=== PATIENT | male | born 1965 ===

== ENCOUNTER 2019-01-30 05:20 | Inpatient (IN) ==
[2019-01-30 06:38] LABS: Basophils % 0.6 % (0.0-0.8); Eosinophils # 0.1 10*3/uL (0.0-0.87); Eosinophils % 1.6 % (0.00-10.9); Hematocrit 20.8 VOL% (42.0-52.0); Immature Granulocytes % 0.3 %; Immature Granulocytes Absolute 0.01 #; Lymphocytes % 31.6 % (21.2-54.2); Mean Corpuscular HGB Conc 27.4 GM/DL (32-36); Monocytes % 12.9 % (1.7-12.7); NRBC # 0.02 10*3/uL; Platelet Count 94 T/CUMM (130-400); Red Blood Count 2.85 MC/CUMM (3.8-5.5); Red Cell Distribution Width 20.6 % (9.3-17.3); White Blood Count 3.1 T/CUMM (4-12)
[2019-01-30 06:42] LABS: Hemoglobin 5.7 GM/DL (14.0-18.0)
[2019-01-30] MEDS ORDERED: SODIUM CHLORIDE 0.9% 1,000 ML IV PRN ×2 (06:53→10:16)
[2019-01-30] MEDS ORDERED: THIAMINE 200 MG/2 ML VIAL IV STA (06:56)
[2019-01-30] MEDS ORDERED: SODIUM CHLORIDE 0.9% 500 ML IV STA (06:56)
[2019-01-30 07:06] LABS: INR 0.9; PT Patient Result 10.3 SECS (9.6-12.2); Partial Thromboplastin Time 26.4 SECS (20.8-36.0)
[2019-01-30 07:13] LABS: Albumin 3.5 G/DL (3.4-5.0); Bilirubin,Direct 0.24 MG/DL (0.0-0.20); Bilirubin,Indirect 0.6 MG/DL (0.0-1.0); Bilirubin,Total 0.8 MG/DL (0.2-1.0); Calcium 7.9 MG/DL (8.5-10.1); Total Protein 7.4 G/DL (6.4-8.3)
[2019-01-30] MEDS ORDERED: ONDANSETRON 4 MG/2 ML VIAL IV PRN (07:40)
[2019-01-30 07:51] LABS: Hypochromasia 1+; Platelet Estimate Decreased
[2019-01-30 08:01] LABS: Apearance,Urine CLEAR (Clear); Bacteria,Urine Occasional /HPF (Few); Bilirubin,Urine Negative (Negative); Blood, Urine Negative (Negative); Glucose,Urine (UA) Negative (Negative); Ketones,Urine Negative (Negative); Mucus,Urine Occasional /LPF (Occasional); Nitrite,Urine Negative (Negative); Protein,Urine Negative; RBC,Urine 1 /HPF (0-4); Urine Color Yellow (Yellow); Urine Specific Gravity 1.004 (1.001-1.035); Urine Urobilinogen < 2.0 EU/DL (0.2-1.0); WBC,Urine <1 /HPF (0-6)
[2019-01-30 08:07] LABS: Barbiturates Screen,Urine Negative (Negative); Benzodiazepines Screen,Urine Negative (Negative); Cannabinoid Screen,Urine Negative (Negative); Opiate Screen,Urine Negative (Negative); Phencyclidine Screen,Urine Negative (Negative)
[2019-01-30 08:46] LABS: Hepatitis B Core IgM Quant < 0.05 Index; Hepatitis B Surface Ag Quant < 0.10 Index; Hepatitis B Surface Ag Result Negative (Negative); Hepatitis C Virus Ab Quant 0.13 Index; Hepatitis C Virus Ab Result Negative (Negative)
[2019-01-30] MEDS ORDERED: cloNIDine 0.1 MG TABLET PO PRN (09:54)
[2019-01-30] MEDS ORDERED: ALBUTEROL/IPRATROPIUM 3 ML NEB RESP TX PRN (09:56)
[2019-01-30] MEDS: NICOTINE 14 MG/24 HR PATCH TRANSDERM SCH (10:10)
[2019-01-30] MEDS: cefTRIAXone 1,000 MG in SYRINGE 1 EACH IV SCH (10:10)
[2019-01-30] MEDS: THIAMINE 100 MG TABLET PO SCH (10:10)
[2019-01-30] MEDS: PANTOPRAZOLE 40 MG VIAL IV SCH (10:10)
[2019-01-30] MEDS: FOLIC ACID 1 MG TABLET PO SCH (10:11)
[2019-01-30] MEDS ORDERED: THIAMINE INJ 100 MG, FOLIC ACID INJ 1 MG, MAGNESIUM SULF INJ 2 GM, MULTIVITAMIN INJ 10 ... IV ONE (11:00)
[2019-01-30] MEDS: AZITHROMYCIN INJ 500 MG in SODIUM CHLORIDE 0.9% 250 ML IV SCH (15:26)
[2019-01-30] MEDS: chlordiazePOXIDE 25 MG CAPSULE PO SCH ×2 (15:26→18:14)
[2019-01-30 15:52] LABS: Hematocrit 25.8 VOL% (42.0-52.0)
[2019-01-30 15:54] LABS: Hemoglobin 7.3 GM/DL (14.0-18.0)
[2019-01-30] MEDS: DORZOLAMIDE/TIMOLOL OPH SOLN 10 ML BOTTLE LEFT EYE SCH (20:19)
[2019-01-30] MEDS: SODIUM CHLORIDE 0.9% 1,000 ML IV SCH (20:34)
[2019-01-31] MEDS: chlordiazePOXIDE 25 MG CAPSULE PO SCH ×5 (00:19→23:54)
[2019-01-31] MEDS: SODIUM CHLORIDE 0.9% 1,000 ML IV SCH ×3 (04:15→20:33)
[2019-01-31 06:11] LABS: % Iron Saturation 4.3 % (18-50); Ferritin 10.7 ng/ml (26-388)
[2019-01-31 06:13] LABS: Basophils % 0.5 % (0.0-0.8); Eosinophils # 0.1 10*3/uL (0.0-0.87); Eosinophils % 1.4 % (0.00-10.9); Hematocrit 28.3 VOL% (42.0-52.0); Hemoglobin 8.1 GM/DL (14.0-18.0); Immature Granulocytes % 0.2 %; Immature Granulocytes Absolute 0.01 #; Lymphocytes # 0.9 10*3/uL (1.4-4.0); Lymphocytes % 20.2 % (21.2-54.2); Mean Corpuscular HGB Conc 28.6 GM/DL (32-36); Mean Corpuscular Volume 75.5 FL (87-102); NRBC # 0.03 10*3/uL; Neutrophils % 68.7 % (38.7-73.9); Red Blood Count 3.75 MC/CUMM (3.8-5.5); Red Cell Distribution Width 20.5 % (9.3-17.3); White Blood Count 4.2 T/CUMM (4-12)
[2019-01-31 06:17] LABS: Platelet Count 86 T/CUMM (130-400)
[2019-01-31 06:20] LABS: Albumin 3.5 G/DL (3.4-5.0); Bilirubin,Total 2.7 MG/DL (0.2-1.0); Osmolality,Calculated 273.5 MOS/KG (273-304); Risk Ratio 1.76; Thyroid Stimulating Hormone 1.32 uIU/ml (0.358-3.74); Total Protein 7.1 G/DL (6.4-8.3)
[2019-01-31 06:21] LABS: Hypochromasia 1+; Platelet Estimate Decreased
[2019-01-31 06:40] LABS: Folate > 24.0 NG/ML (5.4-24.0); Vitamin B12 432 PG/ML (211-911)
[2019-01-31 07:13] LABS: HIV Antigen/Antibody Result Nonreactive (Nonreactive)
[2019-01-31] MEDS: THIAMINE 100 MG TABLET PO SCH (08:58)
[2019-01-31] MEDS: CETIRIZINE 10 MG TABLET PO SCH (08:58)
[2019-01-31] MEDS: FOLIC ACID 1 MG TABLET PO SCH (08:58)
[2019-01-31] MEDS: NICOTINE 14 MG/24 HR PATCH TRANSDERM SCH (08:58)
[2019-01-31] MEDS: DORZOLAMIDE/TIMOLOL OPH SOLN 10 ML BOTTLE LEFT EYE SCH ×2 (08:58→20:34)
[2019-01-31] MEDS: PANTOPRAZOLE 40 MG VIAL IV SCH (08:59)
[2019-01-31] MEDS: AZITHROMYCIN INJ 500 MG in SODIUM CHLORIDE 0.9% 250 ML IV SCH (12:09)
[2019-01-31] MEDS: cefTRIAXone 1,000 MG in SYRINGE 1 EACH IV SCH (12:09)
[2019-02-01] MEDS: SODIUM CHLORIDE 0.9% 1,000 ML IV SCH ×4 (04:38→22:52)
[2019-02-01 05:54] LABS: Albumin 2.9 G/DL (3.4-5.0); Bilirubin,Total 2.2 MG/DL (0.2-1.0); Calcium 7.8 MG/DL (8.5-10.1); Osmolality,Calculated 284.7 MOS/KG (273-304); Total Protein 6.2 G/DL (6.4-8.3)
[2019-02-01] MEDS: chlordiazePOXIDE 25 MG CAPSULE PO SCH ×3 (06:02→17:51)
[2019-02-01 06:20] LABS: Basophils % 0.3 % (0.0-0.8); Eosinophils # 0.2 10*3/uL (0.0-0.87); Hematocrit 26.3 VOL% (42.0-52.0); Hemoglobin 7.6 GM/DL (14.0-18.0); Immature Granulocytes % 0.3 %; Immature Granulocytes Absolute 0.01 #; Lymphocytes # 0.8 10*3/uL (1.4-4.0); Lymphocytes % 20.5 % (21.2-54.2); Mean Corpuscular HGB Conc 28.9 GM/DL (32-36); Mean Corpuscular Volume 74.3 FL (87-102); Monocytes % 11.8 % (1.7-12.7); NRBC # 0.02 10*3/uL; Neutrophils % 62.1 % (38.7-73.9); Red Blood Count 3.54 MC/CUMM (3.8-5.5); Red Cell Distribution Width 20.5 % (9.3-17.3); White Blood Count 3.8 T/CUMM (4-12)
[2019-02-01 06:23] LABS: Platelet Count 69 T/CUMM (130-400)
[2019-02-01 06:27] LABS: Eosinophils 2 % (0-10); Lymphocytes 12 % (20-55); Segmented Neutrophils 79 % (50-85); Total Cells Counted 100
[2019-02-01 06:28] LABS: Hypochromasia 1+; Macrocytosis 1+; Microcytosis 1+; Platelet Estimate Decreased
[2019-02-01] MEDS ORDERED: POTASSIUM CHLORIDE 20 MEQ TABLET PO PRN (07:17)
[2019-02-01] MEDS: LACTATED RINGERS 1,000 ML IV SCH (08:40)
[2019-02-01] MEDS: PANTOPRAZOLE 40 MG VIAL IV SCH (10:32)
[2019-02-01] MEDS: CETIRIZINE 10 MG TABLET PO SCH (10:33)
[2019-02-01] MEDS: THIAMINE 100 MG TABLET PO SCH (10:33)
[2019-02-01] MEDS: FOLIC ACID 1 MG TABLET PO SCH (10:33)
[2019-02-01] MEDS: cefTRIAXone 1,000 MG in SYRINGE 1 EACH IV SCH (10:34)
[2019-02-01] MEDS: NICOTINE 14 MG/24 HR PATCH TRANSDERM SCH (10:34)
[2019-02-01] MEDS: DORZOLAMIDE/TIMOLOL OPH SOLN 10 ML BOTTLE LEFT EYE SCH ×2 (10:37→21:27)
[2019-02-01] MEDS ORDERED: BISACODYL 5 MG TABLET PO ONE (12:00)
[2019-02-01] MEDS ORDERED: PROPOFOL 200 MG/20 ML VIAL IV ONE (13:00)
[2019-02-01] MEDS ORDERED: LIDOCAINE 2% 5 ML VIAL ONE (13:00)
[2019-02-01] MEDS ORDERED: POLYETHYLENE GLYCOL POWDER 255 GM BOTTLE PO ONE (18:00)
[2019-02-01] MEDS ORDERED: MAGNESIUM CITRATE 300 ML BOTTLE PO ONE (21:00)
[2019-02-02] MEDS: chlordiazePOXIDE 25 MG CAPSULE PO SCH ×4 (00:33→18:29)
[2019-02-02 05:39] LABS: PT Patient Result 10.7 SECS (9.6-12.2)
[2019-02-02 05:51] LABS: Basophils % 0.5 % (0.0-0.8); Eosinophils # 0.2 10*3/uL (0.0-0.87); Eosinophils % 4.6 % (0.00-10.9); Hematocrit 26.4 VOL% (42.0-52.0); Hemoglobin 7.7 GM/DL (14.0-18.0); Immature Granulocytes % 0.5 %; Immature Granulocytes Absolute 0.02 #; Lymphocytes # 0.9 10*3/uL (1.4-4.0); Lymphocytes % 20.9 % (21.2-54.2); Mean Corpuscular HGB Conc 29.2 GM/DL (32-36); Mean Corpuscular Volume 74.6 FL (87-102); Monocytes % 13.8 % (1.7-12.7); NRBC # 0.03 10*3/uL; Neutrophils % 59.7 % (38.7-73.9); Platelet Count 65 T/CUMM (130-400); Red Blood Count 3.54 MC/CUMM (3.8-5.5); Red Cell Distribution Width 20.4 % (9.3-17.3); White Blood Count 4.1 T/CUMM (4-12)
[2019-02-02 06:05] LABS: Bilirubin,Total 1.7 MG/DL (0.2-1.0); Calcium 8.4 MG/DL (8.5-10.1); Osmolality,Calculated 277.3 MOS/KG (273-304); Total Protein 6.5 G/DL (6.4-8.3)
[2019-02-02] MEDS ORDERED: POTASSIUM CHLORIDE RIDER 10 MEQ in PREMIX 1 EACH IV PRN (06:31)
[2019-02-02] MEDS: SODIUM CHLORIDE 0.9% 1,000 ML IV SCH ×2 (06:35→20:14)
[2019-02-02 06:42] LABS: Hypochromasia 1+; Microcytosis 1+; Platelet Estimate Decreased; Polychromasia Few
[2019-02-02] MEDS: POTASSIUM CHLORIDE RIDER 10 MEQ in PREMIX 1 EACH IV PRN ×4 (06:55→13:57)
[2019-02-02] MEDS: PANTOPRAZOLE 40 MG VIAL IV SCH (09:38)
[2019-02-02] MEDS: DORZOLAMIDE/TIMOLOL OPH SOLN 10 ML BOTTLE LEFT EYE SCH ×3 (09:39→21:12)
[2019-02-02] MEDS: NICOTINE 14 MG/24 HR PATCH TRANSDERM SCH (09:39)
[2019-02-02] MEDS ORDERED: PHENYLEPHRINE 1 MG/10 ML SYRINGE IV ONE (10:00)
[2019-02-02] MEDS ORDERED: LIDOCAINE 2% 5 ML VIAL ONE (10:00)
[2019-02-02] MEDS ORDERED: PROPOFOL 200 MG/20 ML VIAL IV ONE (10:00)
[2019-02-02] MEDS: LACTATED RINGERS 1,000 ML IV SCH ×2 (11:46→11:47)
[2019-02-02] MEDS: cefTRIAXone 1,000 MG in SYRINGE 1 EACH IV SCH (12:28)
[2019-02-02] MEDS: FOLIC ACID 1 MG TABLET PO SCH (12:29)
[2019-02-02] MEDS: THIAMINE 100 MG TABLET PO SCH (12:29)
[2019-02-02] MEDS: CETIRIZINE 10 MG TABLET PO SCH (12:29)
[2019-02-03] MEDS: chlordiazePOXIDE 25 MG CAPSULE PO SCH ×4 (01:30→18:19)
[2019-02-03] MEDS: SODIUM CHLORIDE 0.9% 1,000 ML IV SCH ×5 (04:49→21:27)
[2019-02-03 05:42] LABS: Basophils % 0.5 % (0.0-0.8); Eosinophils # 0.2 10*3/uL (0.0-0.87); Eosinophils % 4.7 % (0.00-10.9); Hematocrit 26.1 VOL% (42.0-52.0); Hemoglobin 7.4 GM/DL (14.0-18.0); Immature Granulocytes % 0.2 %; Immature Granulocytes Absolute 0.01 #; Lymphocytes # 1.1 10*3/uL (1.4-4.0); Mean Corpuscular HGB Conc 28.4 GM/DL (32-36); Mean Corpuscular Volume 75.9 FL (87-102); Monocytes % 15.6 % (1.7-12.7); NRBC # 0.03 10*3/uL; Platelet Count 63 T/CUMM (130-400); Red Blood Count 3.44 MC/CUMM (3.8-5.5); Red Cell Distribution Width 21.1 % (9.3-17.3)
[2019-02-03 05:47] LABS: Calcium 7.9 MG/DL (8.5-10.1); Osmolality,Calculated 283.8 MOS/KG (273-304)
[2019-02-03 06:11] LABS: Eosinophils 6 % (0-10); Hypochromasia 1+; Lymphocytes 15 % (20-55); Microcytosis 1+; Platelet Estimate Decreased; Segmented Neutrophils 66 % (50-85); Total Cells Counted 100
[2019-02-03] MEDS ORDERED: SODIUM CHLORIDE 0.9% 1,000 ML IV PRN (07:40)
[2019-02-03] MEDS: PANTOPRAZOLE 40 MG VIAL IV SCH (08:49)
[2019-02-03] MEDS: FOLIC ACID 1 MG TABLET PO SCH (08:50)
[2019-02-03] MEDS: CETIRIZINE 10 MG TABLET PO SCH (08:50)
[2019-02-03] MEDS: THIAMINE 100 MG TABLET PO SCH (08:51)
[2019-02-03] MEDS: NICOTINE 14 MG/24 HR PATCH TRANSDERM SCH (09:13)
[2019-02-03] MEDS: DORZOLAMIDE/TIMOLOL OPH SOLN 10 ML BOTTLE LEFT EYE SCH ×3 (09:14→21:27)
[2019-02-03] MEDS: LACTATED RINGERS 1,000 ML IV SCH ×2 (11:53)
[2019-02-03] MEDS: cefTRIAXone 1,000 MG in SYRINGE 1 EACH IV SCH (16:06)
[2019-02-03 17:15] LABS: Hematocrit 31.2 VOL% (42.0-52.0); Hemoglobin 9.1 GM/DL (14.0-18.0)
[2019-02-04] MEDS: chlordiazePOXIDE 25 MG CAPSULE PO SCH (01:15)
[2019-02-04] MEDS: SODIUM CHLORIDE 0.9% 1,000 ML IV SCH ×2 (01:34→05:35)
[2019-02-04] MEDS ORDERED: chlordiazePOXIDE 10 MG CAPSULE PO SCH (06:00)
[2019-02-04] MEDS: LACTATED RINGERS 1,000 ML IV SCH ×2 (10:05)
[2019-02-04] MEDS: DORZOLAMIDE/TIMOLOL OPH SOLN 10 ML BOTTLE LEFT EYE SCH (10:06)
[2019-02-04] MEDS: NICOTINE 14 MG/24 HR PATCH TRANSDERM SCH (10:06)
[2019-02-04] MEDS: FOLIC ACID 1 MG TABLET PO SCH (10:06)
[2019-02-04] MEDS: THIAMINE 100 MG TABLET PO SCH (10:08)
[2019-02-04] MEDS: PANTOPRAZOLE 40 MG VIAL IV SCH (10:08)
[2019-02-04] MEDS: CETIRIZINE 10 MG TABLET PO SCH (10:08)
[2019-02-04 11:39] VITALS: BP 130/88
== END 2019-02-04 12:00 | disposition home or self-care (01) | DRG 811 ==
LOC: EDBD → EDUNIT# → N.ED 05:20 → N.EDINP 07:40 → N.3E 08:25
PROVIDERS: ADMIT Internal Medicine; ATTEND Internal Medicine